=== PATIENT | male | born 1940 | race Caucasian/White ===

== ENCOUNTER 2017-03-29 10:09 | Outpatient (CLI) | payer MEDICARE, OTHER ==
[2017-03-29 13:25] LABS: HEMOGLOBIN A1C 0.52 g/dL
[2017-03-29 13:32] LABS: BASOPHILS # (AUTO) 0.1 10^3/uL (0.0-0.1); EOSINOPHILS # (AUTO) 0.2 10^3/uL (0.0-0.7); EOSINOPHILS % (AUTO) 3.2 %; HCT - HEMATOCRIT 41.6 % (42.0-52.0); HGB - HEMOGLOBIN 14.3 g/dL (14.0-18.0); LYMPHOCYTES # (AUTO) 1.6 10^3/uL (1.5-3.5); LYMPHOCYTES % (AUTO) 30.4 %; MEAN CORPUSCULAR HEMOGLOBIN 32.9 pg (27.0-31.0); MEAN CORPUSCULAR HGB CONC 34.5 g/dL (32.0-36.0); MEAN CORPUSCULAR VOLUME 95.2 fL (80.0-94.0); MONOCYTES # (AUTO) 0.4 10^3/uL (0.0-1.0); MONOCYTES % (AUTO) 8.2 %; NEUTROPHILS % (AUTO) 57.2 %; NUCLEATED RED BLOOD CELLS AUTO 0.1 /100WBC; RED BLOOD COUNT 4.36 10^6/uL (4.70-6.10); RED CELL DISTRIBUTION WIDTH 13.1 % (12.0-15.0); UNCORRECTED WHITE BLOOD COUNT 5.2 x10^3/uL; WHITE BLOOD COUNT 5.2 x10^3/uL (4.8-10.8)
[2017-03-29 13:45] LABS: ALBUMIN/GLOBULIN RATIO 2.1 (1.0-2.2); BILIRUBIN,TOTAL 0.7 mg/dL (0.2-1.0); BUN - BLOOD UREA NITROGEN 23 mg/dL (6-20); CALCIUM 9.7 mg/dL (8.5-10.3); CARBON DIOXIDE - CO2 24 mmol/L (21-32); CHLORIDE 106 mmol/L (101-111); CHOL/HDL RATIO 2.6 (<5.0); CHOLESTEROL 174 mg/dL; CREATININE 1.1 mg/dL (0.6-1.2); GFR - MDRD 65 (>89); GLUCOSE 101 mg/dL (70-100); HDL CHOLESTEROL 68 mg/dL; LDL/HDL RATIO 1.3 (<3.6); POTASSIUM 4.4 mmol/L (3.5-5.0); SODIUM 140 mmol/L (135-145); TOTAL PROTEIN 6.8 g/dL (6.7-8.2); TRIGLYCERIDES 102 mg/dL; VLDL CHOLESTEROL 20 mg/dL
== END 2017-03-29 10:10 | disposition home or self-care (01) ==
LOC: LAB.WCP 10:09
PROVIDERS: ATTEND Family Medicine
DX: E78.5 Hyperlipidemia, unspecified (principal); R73.01 Impaired fasting glucose; Z12.5 Encounter for screening for malignant neoplasm of prostate
CPT/HCPCS: 36415; 80053; 80061; 83036; 85025; G0103; 84153

== ENCOUNTER 2018-04-20 07:34 | Outpatient (CLI) | payer MEDICARE, OTHER ==
[2018-04-20 12:58] LABS: BASOPHILS % (AUTO) 0.8 %; EOSINOPHILS # (AUTO) 0.2 10^3/uL (0.0-0.7); EOSINOPHILS % (AUTO) 3.5 %; HGB - HEMOGLOBIN 13.7 g/dL (14.0-18.0); LYMPHOCYTES # (AUTO) 1.4 10^3/uL (1.5-3.5); LYMPHOCYTES % (AUTO) 29.3 %; MEAN CORPUSCULAR HEMOGLOBIN 33.4 pg (27.0-31.0); MEAN CORPUSCULAR HGB CONC 33.9 g/dL (32.0-36.0); MEAN CORPUSCULAR VOLUME 98.5 fL (80.0-94.0); MEAN PLATELET VOLUME 7.4 fL (7.4-11.4); MONOCYTES # (AUTO) 0.5 10^3/uL (0.0-1.0); MONOCYTES % (AUTO) 9.7 %; NEUTROPHILS # (AUTO) 2.8 10^3/uL (1.5-6.6); NEUTROPHILS % (AUTO) 56.7 %; PLT - PLATELET COUNT 272 10^3/uL (130-450); RED BLOOD COUNT 4.11 10^6/uL (4.70-6.10); WHITE BLOOD COUNT 4.9 x10^3/uL (4.8-10.8)
[2018-04-20 13:00] LABS: BILIRUBIN,URINE NEGATIVE (NEGATIVE); GLUCOSE, URINE (UA) NEGATIVE (NEGATIVE); KETONES,URINE (UA) NEGATIVE (NEGATIVE); LEUKOCYTE ESTERASE, URINE NEGATIVE (NEGATIVE); NITRITE,URINE NEGATIVE (NEGATIVE); OCCULT BLOOD,URINE NEGATIVE (NEGATIVE); PROTEIN,URINE NEGATIVE (NEGATIVE); UROBILINOGEN,URINE 0.2 (NORMAL) E.U./dL (NORMAL)
[2018-04-20 13:04] LABS: CLARITY,URINE CLEAR (CLEAR)
[2018-04-20 13:10] LABS: RBC,URINE None Seen /HPF (0-5); SQUAMOUS EPITHELIAL CELL,UR NONE SEEN (<= Few)
[2018-04-20 13:11] LABS: BACTERIA,URINE None Seen /HPF (None Seen)
[2018-04-20 13:13] LABS: % IRON SATURATION 27 % (20-50); ALBUMIN 4.1 g/dL (3.2-5.5); ALBUMIN/GLOBULIN RATIO 1.6 (1.0-2.2); ALKALINE PHOSPHATASE 58 IU/L (42-121); ALT ALANINE AMINOTRANSFERASE 17 IU/L (10-60); AST ASPARTATE AMINOTRANSFERASE 22 IU/L (10-42); BILIRUBIN,TOTAL 0.6 mg/dL (0.2-1.0); BUN - BLOOD UREA NITROGEN 25 mg/dL (6-20); CALCIUM 9.2 mg/dL (8.5-10.3); CARBON DIOXIDE - CO2 24 mmol/L (21-32); CHLORIDE 107 mmol/L (101-111); CHOL/HDL RATIO 1.7 (<5.0); CHOLESTEROL 154 mg/dL; GFR - MDRD 72 (>89); GLUCOSE 89 mg/dL (70-100); HDL CHOLESTEROL 90 mg/dL; IRON 92 ug/dL (45-182); LDL CHOLESTEROL,CALCULATED 54 mg/dL; LDL/HDL RATIO 0.6 (<3.6); SODIUM 138 mmol/L (135-145); TOTAL IRON BINDING CAPACITY 337 ug/dL (250-450); TOTAL PROTEIN 6.7 g/dL (6.7-8.2); TRANSFERRIN 241 mg/dL (180-329); URIC ACID 6.2 mg/dL (2.6-7.2); VLDL CHOLESTEROL 10 mg/dL
[2018-04-20 13:19] LABS: HB2 TOTAL 15.2 g/dL; HEMOGLOBIN A1C 0.5 g/dL; HEMOGLOBIN A1C % 5.2 % (4.6-6.2)
== END 2018-04-20 07:35 ==
LOC: LAB.WCP 07:34
PROVIDERS: ATTEND Family Medicine
DX: Z00.00 Encounter for general adult medical examination without abnormal findings (principal); E78.5 Hyperlipidemia, unspecified; I10 Essential (primary) hypertension; R73.01 Impaired fasting glucose; D50.9 Iron deficiency anemia, unspecified; M10.9 Gout, unspecified
CPT/HCPCS: 36415; 80053; 80061; 81001; 82728; 83036; 83540; 83721; 84466; 84550; 85025

== ENCOUNTER 2019-05-30 08:56 | Outpatient (CLI) | payer MEDICARE, OTHER ==
[2019-05-30 09:26] LABS: ALBUMIN 4.3 g/dL (3.2-5.5); ALBUMIN/GLOBULIN RATIO 1.5 (1.0-2.2); ALKALINE PHOSPHATASE 65 IU/L (42-121); ALT ALANINE AMINOTRANSFERASE 21 IU/L (10-60); AST ASPARTATE AMINOTRANSFERASE 20 IU/L (10-42); BILIRUBIN,TOTAL 0.8 mg/dL (0.2-1.0); BUN - BLOOD UREA NITROGEN 23 mg/dL (6-20); CALCIUM 9.3 mg/dL (8.5-10.3); CARBON DIOXIDE - CO2 22 mmol/L (21-32); CHLORIDE 107 mmol/L (101-111); CHOL/HDL RATIO 2.1 (<5.0); CHOLESTEROL 168 mg/dL; CREATININE 0.9 mg/dL (0.6-1.2); GFR - MDRD 81 (>89); GLUCOSE 107 mg/dL (70-100); HDL CHOLESTEROL 81 mg/dL; LDL CHOLESTEROL,CALCULATED 71 mg/dL; LDL/HDL RATIO 0.9 (<3.6); SODIUM 142 mmol/L (135-145); TOTAL PROTEIN 7.1 g/dL (6.7-8.2); URIC ACID 4.9 mg/dL (2.6-7.2); VLDL CHOLESTEROL 16 mg/dL
[2019-05-30 09:42] LABS: BASOPHILS # (AUTO) 0.1 10^3/uL (0.0-0.1); BASOPHILS % (AUTO) 1.1 %; EOSINOPHILS # (AUTO) 0.2 10^3/uL (0.0-0.7); EOSINOPHILS % (AUTO) 4.4 %; HGB - HEMOGLOBIN 14.1 g/dL (14.0-18.0); LYMPHOCYTES # (AUTO) 1.7 10^3/uL (1.5-3.5); LYMPHOCYTES % (AUTO) 30.9 %; MEAN CORPUSCULAR HEMOGLOBIN 32.1 pg (27.0-31.0); MEAN CORPUSCULAR HGB CONC 32.6 g/dL (32.0-36.0); MEAN CORPUSCULAR VOLUME 98.6 fL (80.0-94.0); MEAN PLATELET VOLUME 8.8 fL (7.4-11.4); MONOCYTES # (AUTO) 0.5 10^3/uL (0.0-1.0); MONOCYTES % (AUTO) 9.6 %; NEUTROPHILS # (AUTO) 2.9 10^3/uL (1.5-6.6); NEUTROPHILS % (AUTO) 53.8 %; PLT - PLATELET COUNT 254 10^3/uL (130-450); RED BLOOD COUNT 4.39 10^6/uL (4.70-6.10); RED CELL DISTRIBUTION WIDTH 12.6 % (12.0-15.0); WHITE BLOOD COUNT 5.4 x10^3/uL (4.8-10.8)
== END 2019-05-30 08:57 | disposition home or self-care (01) ==
LOC: LAB 08:56
PROVIDERS: ATTEND Family Medicine
DX: N40.1 Benign prostatic hyperplasia with lower urinary tract symptoms (principal); I10 Essential (primary) hypertension; M19.049 Primary osteoarthritis, unspecified hand; M10.9 Gout, unspecified
CPT/HCPCS: 36415; 80053; 80061; 83721; 84443; 84550; 85025

== ENCOUNTER 2020-06-06 08:43 | Outpatient (CLI) | payer MEDICARE, OTHER ==
[2020-06-06 09:02] LABS: BASOPHILS # (AUTO) 0.1 10^3/uL (0.0-0.1); EOSINOPHILS # (AUTO) 0.3 10^3/uL (0.0-0.7); EOSINOPHILS % (AUTO) 4.5 %; HGB - HEMOGLOBIN 14.8 g/dL (14.0-18.0); LYMPHOCYTES % (AUTO) 31.6 %; MEAN CORPUSCULAR HGB CONC 34.6 g/dL (32.0-36.0); MEAN CORPUSCULAR VOLUME 98.4 fL (80.0-94.0); MEAN PLATELET VOLUME 8.3 fL (7.4-11.4); MONOCYTES # (AUTO) 0.5 10^3/uL (0.0-1.0); MONOCYTES % (AUTO) 8.7 %; NEUTROPHILS # (AUTO) 3.4 10^3/uL (1.5-6.6); PLT - PLATELET COUNT 264 10^3/uL (130-450); RED BLOOD COUNT 4.35 10^6/uL (4.70-6.10); RED CELL DISTRIBUTION WIDTH 12.6 % (12.0-15.0); WHITE BLOOD COUNT 6.2 x10^3/uL (4.8-10.8)
[2020-06-06 09:16] LABS: ALBUMIN 4.9 g/dL (3.2-5.5); ALBUMIN/GLOBULIN RATIO 2.2 (1.0-2.2); BILIRUBIN,TOTAL 0.7 mg/dL (0.2-1.0); CALCIUM 9.4 mg/dL (8.5-10.3); TOTAL PROTEIN 7.1 g/dL (6.7-8.2); URIC ACID 5.3 mg/dL (2.6-7.2)
[2020-06-06 11:58] LABS: HEMOGLOBIN A1c% 5.4 % (4.27-6.07)
== END 2020-06-06 08:44 | disposition home or self-care (01) ==
LOC: LAB 08:43
PROVIDERS: ATTEND Family Medicine
DX: E78.5 Hyperlipidemia, unspecified (principal); I10 Essential (primary) hypertension; R73.01 Impaired fasting glucose; M10.9 Gout, unspecified; K21.9 Gastro-esophageal reflux disease without esophagitis
CPT/HCPCS: 36415; 80053; 83036; 84443; 84550; 85025

== ENCOUNTER 2020-08-04 10:56 | Outpatient (CLI) | payer MEDICARE, OTHER ==
--- NOTE | 2020-08-07 12:18 | XRAY Report ---
PROCEDURE: Shoulder 3 View RT INDICATIONS: FROZEN RIGHT SHOULDER TECHNIQUE: 3 views of the shoulder were acquired. COMPARISON: None. FINDINGS: Bones: 3 views of the right shoulder demonstrate complete loss of the joint space with subchondral sc lerosis and subchondral cystic changes. The glenohumeral joint has moderate size osteophytes. The acr omioclavicular joint is intact. The visualized right ribs and right lung space are normal. Soft tissu es are normal. IMPRESSION: Severe degenerative changes of the right glenohumeral joint with complete loss of the aida int space. Reviewed by: Maximiliano Moreno on 08/04/2020 1:37 PM PDT Approved by: Maximiliano Moreno on 08/04/2020 1:37 PM PDT Station ID: [id number]
== END 2020-08-04 10:57 | disposition home or self-care (01) ==
LOC: DI 10:56
PROVIDERS: ATTEND Family Medicine
DX: M75.01 Adhesive capsulitis of right shoulder (principal); M19.011 Primary osteoarthritis, right shoulder

== ENCOUNTER 2021-01-15 14:29 | Outpatient (CLI) | payer MEDICARE, OTHER ==
--- NOTE | 2021-01-15 17:22 | XRAY Report ---
PROCEDURE: Shoulder 3 View RT INDICATIONS: RIGHT SHOULDER PAIN TECHNIQUE: 4 views of the shoulder were acquired. COMPARISON: 08/04/2020. FINDINGS: Bones: No acute fractures or dislocations. Redemonstration of severe degenerative changes of the ri ght glenohumeral joint with complete loss of the joint space and presence of prominent marginal osteo phytes. Marginal osteophytes are most prominent over the inferior aspect of the glenohumeral joint. C oracoclavicular and acromioclavicular intervals are maintained. There are also hypertrophic degenerat merlin changes of the right acromioclavicular joint. No suspicious bony lesions. Visualized ribs appear intact. Soft tissues: No suspicious soft tissue calcifications. Stable 3 mm nodular density in the right mi dlung zone likely representing either a vessel seen on end or tiny pulmonary granuloma. IMPRESSION: Right shoulder without acute fracture or dislocation. Redemonstration of severe right glenohumeral joint osteoarthrosis Mild hypertrophic osteoarthritic changes of the right acromioclavicular joint. Reviewed by: Marek Byrnes MD on 01/15/2021 5:20 PM PDT Approved by: Marek Byrnes MD on 01/15/2021 5:20 PM PDT Station ID: [id number]
== END 2021-01-15 23:59 | disposition home or self-care (01) ==
LOC: DI.N 14:29
PROVIDERS: ATTEND Physician Assistant
DX: M75.01 Adhesive capsulitis of right shoulder (principal); M19.011 Primary osteoarthritis, right shoulder

== ENCOUNTER 2021-02-25 13:15 | Outpatient (CLI) | payer MEDICARE, OTHER ==
[2021-02-25 13:33] LABS: BASOPHILS # (AUTO) 0.1 10^3/uL (0.0-0.1); BASOPHILS % (AUTO) 0.8 %; EOSINOPHILS # (AUTO) 0.2 10^3/uL (0.0-0.7); EOSINOPHILS % (AUTO) 3.5 %; HCT - HEMATOCRIT 40.5 % (42.0-52.0); LYMPHOCYTES % (AUTO) 30.3 %; MEAN CORPUSCULAR HEMOGLOBIN 33.4 pg (27.0-31.0); MEAN CORPUSCULAR HGB CONC 34.6 g/dL (32.0-36.0); MEAN CORPUSCULAR VOLUME 96.7 fL (80.0-94.0); MEAN PLATELET VOLUME 8.5 fL (7.4-11.4); MONOCYTES # (AUTO) 0.5 10^3/uL (0.0-1.0); NEUTROPHILS # (AUTO) 3.8 10^3/uL (1.5-6.6); NEUTROPHILS % (AUTO) 57.2 %; PLT - PLATELET COUNT 261 10^3/uL (130-450); RED BLOOD COUNT 4.19 10^6/uL (4.70-6.10); RED CELL DISTRIBUTION WIDTH 12.6 % (12.0-15.0); WHITE BLOOD COUNT 6.6 x10^3/uL (4.8-10.8)
[2021-02-25 13:49] LABS: ALBUMIN 4.4 g/dL (3.2-5.5); ALBUMIN/GLOBULIN RATIO 1.8 (1.0-2.2); ALKALINE PHOSPHATASE 73 IU/L (42-121); ALT ALANINE AMINOTRANSFERASE 25 IU/L (10-60); AST ASPARTATE AMINOTRANSFERASE 24 IU/L (10-42); BILIRUBIN,TOTAL 0.6 mg/dL (0.2-1.0); BUN - BLOOD UREA NITROGEN 32 mg/dL (6-20); CALCIUM 9.1 mg/dL (8.5-10.3); CARBON DIOXIDE - CO2 21 mmol/L (21-32); CHLORIDE 106 mmol/L (101-111); CHOLESTEROL 179 mg/dL; GFR - MDRD 72 (>89); GLUCOSE 181 mg/dL (70-100); HDL CHOLESTEROL 60 mg/dL; LDL CHOLESTEROL,CALCULATED 53 mg/dL; LDL/HDL RATIO 0.9 (<3.6); SODIUM 138 mmol/L (135-145); TOTAL PROTEIN 6.8 g/dL (6.7-8.2); TRIGLYCERIDES 330 mg/dL; VLDL CHOLESTEROL 66 mg/dL
[2021-02-25 14:01] LABS: THYROID STIMULATING HORMONE 2.45 uIU/mL (0.34-5.60)
[2021-02-25 19:15] LABS: ESTIMATED AVERAGE GLUCOSE 108 mg/dL (70-100); HEMOGLOBIN A1c% 5.4 % (4.27-6.07)
== END 2021-02-25 13:16 | disposition home or self-care (01) ==
LOC: LAB 13:15
PROVIDERS: ATTEND Family Medicine
DX: M19.011 Primary osteoarthritis, right shoulder (principal); M19.90 Unspecified osteoarthritis, unspecified site; E78.5 Hyperlipidemia, unspecified; M75.41 Impingement syndrome of right shoulder; I10 Essential (primary) hypertension; R73.01 Impaired fasting glucose; M10.9 Gout, unspecified
CPT/HCPCS: 36415; 80053; 80061; 83036; 83721; 84443; 85025

== ENCOUNTER 2021-03-03 13:18 | Outpatient (CLI) | payer MEDICARE, OTHER ==
--- NOTE | 2021-03-03 17:45 | MRI Report ---
PROCEDURE: Shoulder RT W/O INDICATIONS: R SHOULDER OSTEOARTHRITIS TECHNIQUE: Noncontrast oblique coronal T2 fast spin echo with fat saturation, oblique sagittal T1 spin echo and T2 fast spin echo with fat saturation, axial T1 spin echo and T2 fast spin echo with fat saturation t hrough the shoulder. COMPARISON: Shoulder radiographs dated 01/15/2021 and 08/04/2020. FINDINGS: Image quality: Diagnostic. Rotator cuff: Tendinosis and low-grade articular and bursal surface partial-thickness tear involving distal supraspinatus at its insertion on humeral head is seen extending to musculotendinous junction. Distal infraspinatus and subscapularis tendinosis is seen. Low-grade partial-thickness tear involvin g superior fibers of distal subscapularis is noted. No full-thickness rotator cuff tendon rupture. Mi ld supraspinatus muscle atrophy is seen on sagittal images. Bones and bursae: Moderate to severe osteoarthritic changes in glenohumeral joint are seen. Mild to m oderate acromioclavicular joint osteoarthritic changes also noted. No fracture or dislocation. Marrow edema is seen in blennoid likely due to changes secondary to osteoarthritis. There is moderate amoun t of joint effusion and subacromial subdeltoid bursal fluid. Moderate subcoracoid bursal fluid is als o seen. Possible 1.2 x 0.9 cm loose body is noted within dependent portion of subcoracoid bursa. Capsule and soft tissues: In the absence of intra-articular contrast, Global signal abnormality thro ughout labrum is seen consistent with extensive labral tear. The glenohumeral ligaments appear intact . The long head of the biceps tendon demonstrates normal location and morphology. The rotator inter kris appears normal, without fibrosis. The coracohumeral ligament is normal in thickness. IMPRESSION: 1. Tendinosis and low-grade articular and bursal surface partial-thickness tear involving distal supr aspinatus extending to musculotendinous junction. Distal infraspinatus tendinosis. Tendinosis and low -grade partial-thickness tear involving superior fibers of distal subscapularis. 2. Moderate to severe glenohumeral joint osteoarthritis. Mild to moderate acromioclavicular joint ost eoarthritis. Moderate amount of joint effusion and subacromial subdeltoid bursal fluid. Moderate subc oracoid bursal fluid with suggestion of loose body as above. 3. Suggestion of extensive right shoulder labral tear. Reviewed by: Jad Abraham MD on 03/03/2021 5:43 PM PDT Approved by: Jad Abraham MD on 03/03/2021 5:43 PM PDT Station ID: [id number]
== END 2021-03-03 13:19 | disposition home or self-care (01) ==
LOC: DI 13:18
PROVIDERS: ATTEND Orthopaedic Surgery
DX: M75.111 Incomplete rotator cuff tear or rupture of right shoulder, not specified as traumatic (principal); M19.011 Primary osteoarthritis, right shoulder; I10 Essential (primary) hypertension
CPT/HCPCS: 36415; 80053; 83735

== ENCOUNTER 2021-03-03 14:15 | Outpatient (CLI) | payer MEDICARE, OTHER ==
[2021-03-03 14:46] LABS: ALBUMIN 4.7 g/dL (3.2-5.5); BILIRUBIN,TOTAL 0.7 mg/dL (0.2-1.0); CALCIUM 9.8 mg/dL (8.5-10.3); CREATININE 1.1 mg/dL (0.6-1.2); MAGNESIUM 2.4 mg/dL (1.7-2.8); POTASSIUM 3.7 mmol/L (3.5-5.0); TOTAL PROTEIN 7.1 g/dL (6.7-8.2)
== END 2021-03-03 14:16 | disposition home or self-care (01) ==
LOC: LAB 14:15
PROVIDERS: ATTEND Family Medicine
DX: I10 Essential (primary) hypertension (principal)
CPT/HCPCS: 36415; 80053; 83735

== ENCOUNTER 2021-03-19 08:00 | Outpatient (CLI) | payer MEDICARE, OTHER | END 2021-03-19 23:59 | disposition home or self-care (01) | LOC: LAB.N 08:00 | PROVIDERS: ATTEND Orthopaedic Surgery | DX: Z01.812 Encounter for preprocedural laboratory examination (principal); Z20.822 Contact with and (suspected) exposure to COVID-19 ==

== ENCOUNTER 2021-03-25 06:16 | Inpatient (IN) | payer MEDICARE, OTHER ==
[~2021-03-25 06:16] MED LIST: ACETAMINOPHEN 500 MG TABLET PO ONE; DEXAMETHASONE 10 MG/ML VIAL ONE; ceFAZolin 2 GM/50 ML 2 GM/50 ML BAG IV ONE
[2021-03-25] MEDS ORDERED: LACTATED RINGERS 1,000 ML IV ONE ×2 (06:22→11:49)
--- NOTE | 2021-03-25 06:49 | ANESTHESIA ---
Pre-Anesthesia VS, & Labs - Diagnosis right shoulder osteoarthritis - Procedure Right total shoulder arthroplasty Vital Signs: Temp Pulse Resp BP Pulse Ox 36.5 C 62 15 149/75 H 95 03/25/21 06:40 03/25/21 06:40 03/25/21 06:40 03/25/21 06:40 03/25/21 06:40 Height: 5 ft 11 in Weight (kg): 85.7 kg Body Mass Index: 26.3 BMI Classification: Overweight - NPO >8 hours - Lab Results Current Lab Results: Laboratory Tests 03/25/21 06:43: POC Whole Bld Glucose 104 H Lab results reviewed: Yes Home Medications and Allergies Home Medications: Ambulatory Orders Amlodipine Besylate [Norvasc] 10 mg PO BID 03/18/21 Diclofenac Sodium [Arthritis Pain] 2 gm TP BID 03/18/21 Losartan Potassium [Cozaar] 100 mg PO DAILY 03/18/21 Oxybutynin Chloride [Ditropan Xl] 5 mg PO BID PRN 03/18/21 Probenecid [Benemid] 250 mg PO BID 03/18/21 Simvastatin [Zocor] 20 mg PO DAILY 03/18/21 Amlodipine Besylate [Norvasc] 10 mg PO BID 03/18/21 Diclofenac Sodium [Arthritis Pain] 2 gm TP BID 03/18/21 Losartan Potassium [Cozaar] 100 mg PO DAILY 03/18/21 Oxybutynin Chloride [Ditropan Xl] 5 mg PO BID PRN 03/18/21 Probenecid [Benemid] 250 mg PO BID 03/18/21 Simvastatin [Zocor] 20 mg PO DAILY 03/18/21 Allergies/Adverse Reactions: Allergies Allergy/AdvReac Type Severity Reaction Status Date / Time allopurinol Allergy Hives Verified 03/18/21 10:26 febuxostat [From Uloric] Allergy Hives Verified 03/18/21 10:26 lisinopril AdvReac cough Verified 03/18/21 10:26 Anes History & Medical History - Anesthetic History Anesthesia Complications: reports: No previous complications Family history of Anesthesia Complications: Denies Family history of Malignant Hyperthermia: Denies - Medical History Cardiovascular: reports: Hypertension, High cholesterol Pulmonary: reports: None Gastrointestinal: reports: None Urinary: reports: Benign prostate hypertrophy Musculoskeletal: reports: Osteoarthritis, Chronic back pain, Other Endocrine/Autoimmune: reports: None Skin: reports: None - Surgical History General: reports: Appendectomy, Colonoscopy Eyes Ears Nose Throat (EENT): reports: Tonsil/Adenoidectomy Urologic: reports: Prostatic surgery Orthopedic: reports: Knee replacement Exam General: Alert, Oriented x3, Cooperative, No acute distress Dental: WNL Mouth Openin Fingerbreadth Neck Mobility: Reduced Mallampati classification: II Respiratory: Lungs clear, Normal breath sounds, No respiratory distress, No accessory muscle use Cardiovascular: Regular rate, Normal S1, Normal S2, No murmurs Plan Anesthesia Type: General, Interscalene Block Regional Block: Per Surgeon's request for Post Op pain control Consent for Procedure(s) Verified and Reviewed: Yes Code Status: Attempt Resuscitation ASA classification: 2-Mild systemic disease Is this case an emergency?: No
[2021-03-25] MEDS ORDERED: fentaNYL 100 MCG/2 ML VIAL ONE (06:52)
[2021-03-25] MEDS ORDERED: MIDAZOLAM 2 MG/2 ML VIAL ONE (06:52)
[2021-03-25] MEDS ORDERED: LIDOCAINE-MPF 2% 5 ML VIAL ONE ×2 (06:53→06:55)
[2021-03-25] MEDS ORDERED: PROPOFOL 200 MG/20 ML VIAL IVP ONE (06:53)
[2021-03-25] MEDS ORDERED: ROCURONIUM 50 MG/5 ML VIAL ONE ×3 (06:54→09:07)
[2021-03-25] MEDS ORDERED: ROPIVACAINE 0.5% PF 20 ML AMPULE ONE (06:55)
[2021-03-25] MEDS ORDERED: EPINEPHrine 1 MG/ML AMP ONE (06:56)
[2021-03-25] MEDS ORDERED: DEXAMETHASONE 10 MG/ML VIAL ONE (06:56)
[2021-03-25] MEDS ORDERED: THROMBIN (BOVINE) 5,000 UNIT VIAL TOP ONE ×2 (07:02→08:23)
[2021-03-25] MEDS ORDERED: ONDANSETRON 4 MG/2 ML VIAL IVP PRN ×2 (07:17→11:13)
[2021-03-25] MEDS ORDERED: MORPHINE 2 MG/ML CARPUJECT IVP PRN ×2 (07:17→11:13)
[2021-03-25] MEDS ORDERED: SODIUM CHLORIDE FLUSH 0.9% 10 ML SYRINGE IVP PRN (07:17)
[2021-03-25] MEDS ORDERED: DOCUSATE SODIUM 100 MG CAPSULE PO PRN (07:17)
[2021-03-25] MEDS ORDERED: TRANEXAMIC ACID 1,000 MG/10 ML VIAL ONE ×2 (07:50→09:35)
[2021-03-25] MEDS ORDERED: SODIUM CHLORIDE 0.9% 10 ML VIAL IVP ONE (07:54)
[2021-03-25] MEDS ORDERED: ePHEDrine 50 MG/ML VIAL IVP ONE (07:54)
[2021-03-25] MEDS ORDERED: ACETAMINOPHEN 1,000 MG/100 ML 100 ML IV ONE (07:56)
[2021-03-25] MEDS ORDERED: NS W/20 MEQ KCL 1,000 ML IV SCH (08:00)
[2021-03-25] MEDS ORDERED: CELECOXIB 100 MG CAPSULE PO SCH ×2 (09:00→13:30)
[2021-03-25] MEDS ORDERED: ASPIRIN EC 81 MG TABLET PO SCH (09:00)
[2021-03-25] MEDS ORDERED: ethyl alcohoL 62% SWAB AMPULE NAS SCH (09:00)
[2021-03-25] MEDS ORDERED: NEOSTIGMINE 1 MG/1 ML 10 ML MDV ONE ×2 (10:30→10:31)
[2021-03-25] MEDS ORDERED: GLYCOPYRROLATE 1 MG/5 ML VIAL ONE (10:30)
[2021-03-25] MEDS ORDERED: ePHEDrine 50 MG/ML VIAL IVP PRN (11:13)
[2021-03-25] MEDS ORDERED: METOCLOPRAMIDE 10 MG/2 ML VIAL IVP PRN (11:13)
[2021-03-25] MEDS ORDERED: fentaNYL 100 MCG/2 ML VIAL IVP PRN (11:13)
[2021-03-25] MEDS ORDERED: HYDROmorphone 0.5 MG/0.5 ML SYRINGE IVP PRN (11:13)
[2021-03-25] MEDS ORDERED: ATROPINE ABBOJECT 1 MG/10 ML SYRINGE IVP PRN (11:13)
[2021-03-25] MEDS ORDERED: NALOXONE 0.4 MG/ML VIAL IVP PRN (11:13)
--- NOTE | 2021-03-25 11:26 | OPERATIVE REPORT ---
Operative Report - General Admit Date: 03/25/21 Procedure Date: 03/25/21 Planned Procedure: Right total shoulder arthroplasty Pre-Op Diagnosis: Osteoarthritis right glenohumeral joint Procedure Performed: Right total shoulder arthroplasty using the [employer] Integra total shoulder arthroplasty. Medium glenoid, 13 stem, 12 standard body, 48 x 18 mm eccentric humeral head Post Op Diagnosis: Osteoarthritis right glenohumeral joint - Procedure Note Primary Surgeon: Venkat Gil MD Secondary Surgeon: Peyman BALL, Frank BALL Anesthesia Provider: Alan Tellez CRNA Anesthesia Technique: General ET tube, Regional block Estimated Blood Loss (mL): 100 Indications: This is a relatively healthy and active 80-year-old gentleman with chronic pain to the right glenohumeral joint that restricts activities of daily living and activities that he would like to do. He is tried nonoperative treatment and has had progression of symptoms with time. His x-rays show advanced glenohumeral osteoarthritis with relatively concentric wear, type A2 glenoid with intact rotator cuff confirmed clinically and by MRI scan of the right shoulder. He has had a preoperative medical evaluation without any absolute contraindications for surgery. Findings: Eburnated bone surfaces to glenoid and humeral head, osteophytes, with intact rotator cuff Complications: none - Other Other Information/Narrative: The patient was brought to the operating room. He was given a general endotracheal anesthesia and a shoulder block to the right shoulder. He was placed in a beachchair positioner in a semisitting position and his right arm was secured to a arm albert. The right upper extremity was prepped and draped in a sterile manner in the usual fashion. The head positioner was placed in a neutral position with care to protect the face with a padded facemask. A timeout procedure was performed by the entire operating room team and all were in agreement. A An anterolateral incision was was made longitudinally about the right shoulder just lateral to the coracoid and parallel to the deltopectoral interval. The subcutaneous tissue was divided and the deltopectoral interval was developed by blunt retraction with mobilization of the subdeltoid and subcoracoid spaces. With the arm in external rotation the rotator interval was identified and a horizontal arthrotomy was made and then extended vertically. The arm could be externally rotated to about 30 degrees and for this reason a subscapularis tenotomy was made. Prior to the tenotomy traction sutures were inserted into the subscapularis for subsequent repair. The tenotomy was performed and taking distally along the inferior capsule. The biceps tendon had been identified as well. Part of the pectoralis major insertion was released, approximately 1 cm. With progressive external rotation, the anterior and inferior capsule was released. The musculocutaneous nerve was protected when retracting the conjoined muscles. The humeral circumflex vessels were ligated with electrocautery. The posterior capsule was maintained. A deltoid retractor was inserted to elevate the humeral head as the humeral head was dislocated with external rotation. A blunt Hohmann was inserted medially and a Derra retractor was inserted superiorly to expose the humeral head the head resection was performed with the intramedullary cutting guide. The cutting guide was adjusted to a depth to protect the posterior cuff attachment. The guide was temporarily secured with half pins and oscillating saw was used to remove the humeral head en bloc. Next the humeral head was sized that had been resected. The glenoid was exposed by positioning the arm albert and abduction and mild external rotation. A posterior glenoid retractor was inserted directly against bone and a blunt Hohmann was inserted anteriorly to provide good exposure of the glenoid. A medium trial glenoid seem to fit well with a nice concentric fit. The guidepin was inserted in the center and then glenoid reaming was carried out with a low-profile glenoid reamer to try to create a nice reamed surface without excessive bone removal. A trial fit was performed with the trial glenoid and it seemed to have a nice fit to the glenoid face. A central drill hole was made in the pegged glenoid drill guide was utilized to place 2 holes inferiorly and one superiorly. The patent glenoid trial retractor was impacted and was stable and fit well's. The depth of the holes were checked with the probe and there was no cortical breakthrough on any of the holes. The glenoid surface was cleansed with pulse lavage. Gelfoam and thrombin was placed in the drill holes. Cement was injected into the holes and the permanent glenoid was then impacted and well seated using a secondary impactor. Next the humeral head canal was prepared with progressive reamers up to a 13 and a standard size was indicated as the standard marked aligned with the calcar and had a good fit. The humeral canal had been cut and aligned at 30 degrees of retroversion. the osteotomy was evaluated and a calcar planer was used. The osteotomy sizing template was utilized and an eccentric fit seem to be the best. Soft tissue balancing was performed using a trial humeral head and was felt that the 48 x 18 eccentric head gave good motion and stability. The humeral head could be subluxed posteriorly almost 50% and would spontaneously reduce when the posterior force was released. The permanent implant was assembled and impacted in 30 degrees of retroversion. The stem was left slightly proud to allow impaction of the humeral head which was aligned from previous trial positioning. The humeral component seated well and was stable. The range of motion and stability was very good. Prior to the insertion of the humeral component, 2 fiber elliot all suture anchors had been inserted into the humeral neck to facilitate subscapularis repair. The subscapularis and rotator interval were closed with nonabsorbable #1 and 2 suture. The deltopectoral interval was closed with 0 Vicryl. The subcutaneous tissue was closed with 2-0 Vicryl. The skin was closed with a 3-0 Monocryl subcuticular suture and Dermabond closure, silver impregnated dressing and sling. He received 2 g of Ancef intravenously and tranxemic acid. He tolerated the procedure well.A physician civil engineering assistant was utilized to provide exposure, retraction and protection of vital structures, positioning and draping, wound closure and brace application; a physician as sistant was felt to be a medical necessity.
[2021-03-25] MEDS ORDERED: LACTATED RINGERS 1,000 ML IV SCH (12:00)
--- NOTE | 2021-03-25 12:15 | XRAY Report ---
PROCEDURE: Shoulder 2 View RT INDICATIONS: postop TECHNIQUE: 2 views of the shoulder were acquired. COMPARISON: Right shoulder radiographs preop 01/15/2021. FINDINGS: Bones: Right humerus arthroplasty is in the expected position. No periprosthetic lucency to suggest loosening or infection. No fractures or dislocations. No suspicious bony lesions. Visualized ribs a ppear intact. Soft tissues: No suspicious soft tissue calcifications. IMPRESSION: Expected appearance of the right humerus arthroplasty. Reviewed by: Raleigh Lazar MD on 03/25/2021 12:13 PM PDT Approved by: Raleigh Lazar MD on 03/25/2021 12:13 PM PDT Station ID: [id number]
--- NOTE | 2021-03-25 12:38 | ANESTHESIA POST OP EVALUATION ---
Anesthesia Post Eval - Post Anesthesia Eval Vitals: Last Vital Signs Temp 37.0 C 03/25/21 12:36 Pulse 64 03/25/21 12:36 Resp 15 03/25/21 12:36 BP 111/55 L 03/25/21 12:36 Pulse Ox 95 03/25/21 12:36 CV Function Including HR & BP: Stable Pain Control: Satisfactory Nausea & Vomiting: Negative Mental Status: Baseline Respiratory Status: Airway Patent Hydration Status: Satisfactory Anesthesia Complications: None
--- NOTE | 2021-03-25 13:44 | CONSULTATION NOTE ---
Referring Provider Name of Referring Provider:: Dr. Gil Consult Date: 03/25/21 Chief Complaint - Chief Complaint Chief Complaint: s/p of Right total shoulder arthroplasty History of Present Illness - Admitted From Admitted From:: medical floor - History Obtained From Records Reviewed: [facility] History obtained from: pt and Dr. Gil Exam Limitations: no - History of Present Illness HPI Comment/Other: This is a 80-years old male With a past medical history significant noted for hypertension, hyperlipidemia, BPH, osteoarthritis, Who had a Right total shoulder arthroplasty done by our orthopedic surgeon. Medical team was Consulted for medical management. We saw patient in the medical floor s/p of Right total shoulder arthroplasty. Patient is comfortable laying in the bed. He has no complaints. His pain is good control. he denies chest pain, shortness of breath. He state " I will walk out of hospital if I could not be d/c on tomorrow." History - Past Medical History Cardiovascular: reports: Hypertension, High cholesterol Respiratory: reports: None Endocrine/Autoimmune: reports: None GI: reports: None : reports: Benign prostate hypertrophy HEENT: reports: Chronic vision loss, Chronic hearing loss Psych: reports: None Musculoskeletal: reports: Osteoarthritis, Chronic back pain, Other Derm: reports: None MRSA Hx?: No - Past Surgical History General: reports: Appendectomy, Colonoscopy Ortho: reports: Knee replacement HEENT: reports: Tonsil/Adenoidectomy Meds/Allgy - Home Medications Home Medications: Ambulatory Orders Medication Instructions Recorded Confirmed Amlodipine Besylate [Norvasc] 10 mg PO BID 03/18/21 03/25/21 Diclofenac Sodium [Arthritis Pain] 2 gm TP BID 03/18/21 03/25/21 Losartan Potassium [Cozaar] 100 mg PO DAILY 03/18/21 03/25/21 Oxybutynin Chloride [Ditropan Xl] 5 mg PO BID PRN 03/18/21 03/25/21 Probenecid [Benemid] 250 mg PO BID 03/18/21 03/25/21 Simvastatin [Zocor] 20 mg PO DAILY 03/18/21 03/25/21 - Allergies Allergies/Adverse Reactions: Allergies Allergy/AdvReac Type Severity Reaction Status Date / Time allopurinol Allergy Hives Verified 03/18/21 10:26 febuxostat [From Uloric] Allergy Hives Verified 03/18/21 10:26 lisinopril AdvReac cough Verified 03/18/21 10:26 Review of Systems - Constitutional Constitutional: denies: Fever, Chills, Malaise, Weakness, Poor appetite, Diaphoresis - Eyes Eyes: denies: Pain, Blurred vision, Field loss, Vision loss - Ears, Nose & Throat Ears, Nose & Throat: denies: Ear pain, Tinnitus, Nosebleeds, Bleeding gums - Cardiovascular Cariovascular: denies: Irregular heart rate, Palpitations, Chest pain, Edema, Lightheadedness, Syncope, Exertional dyspnea, Decr. exercise tolerance - Respiratory Respiratory: denies: Cough, Sputum production, Wheezing, Snoring, Hemoptysis, Orthopnea, SOB at rest, SOB with exertion - Gastrointestinal Gastrointestinal: denies: Abdominal pain, Constipation, Diarrhea, Rectal bleeding, Black stools, Bloody stools, Nausea, Vomiting - Genitourinary Genitourinary: denies: Dysuria, Urgency, Incontinence - Musculoskeletal Musculoskeletal: reports: Limited range of motion. denies: Muscle pain, Muscle aches - Integumentary Integumentary: denies: Rash, Lesions - Neurological Neurological: denies: General weakness, Focal weakness, Headache, Dizziness, Numbness, Memory problems, Pre-existing deficit, Abnormal gait, Seizures, Incoordination, Slurred speech - Psychiatric Psychiatric: denies: Depression, Anxiety, Delusions - Endocrine Endocrine: denies: Polyuria, Polyphagia - Hematologic/Lymphatic Hematologic/Lymphatic: denies: Anemia, Blood clots Exam - Vital Signs Vital Signs: Vital Signs x48h Temp Pulse Pulse Resp BP BP Pulse Ox 03/25/21 13:22 67 18 116/50 L 94 03/25/21 12:36 37.0 C 64 15 111/55 L 95 03/25/21 12:25 36.9 C 62 14 104/56 L 95 03/25/21 12:20 37.0 C 65 19 107/53 L 96 03/25/21 12:15 37.0 C 67 17 111/54 L 97 03/25/21 12:10 65 16 111/53 L 98 03/25/21 12:05 65 14 104/55 L 97 03/25/21 12:00 66 14 103/58 L 97 03/25/21 11:55 37.0 C 69 15 109/53 L 96 03/25/21 11:50 69 10 L 109/53 L 97 03/25/21 11:47 36.9 C 69 12 100/57 L 96 03/25/21 06:40 36.5 C 62 15 149/75 H 95 - Physical Exam General Appearance: positive: No acute distress, Alert. negative: Lethargic Eyes Bilateral: positive: Normal inspection, PERRL, No lid inflammation ENT: positive: ENT inspection nml, No signs of dehydration. negative: Purulent nasal drainage Neck: positive: Nml inspection, Trachea midline. negative: Thyromegaly, Tracheal deviation Respiratory: positive: Chest non-tender, No respiratory distress, Breath sounds nml. negative: Wheezes, Rales Cardiovascular: positive: Regular rate & rhythm, No murmur. negative: Tachycardia, Bradycardia, Systolic murmur, Diastolic murmur Peripheral Pulses: positive: 2+ Abdomen: positive: Non-tender, Nml bowel sounds, No distention. negative: Tenderness, Guarding Back: positive: Nml inspection Skin: positive: Color nml, Warm, Dry. negative: Cyanosis Extremities: positive: Nml appearance, Other (intact neurovascular status on distal of right upper extremity). negative: Calf tenderness Neurologic/Psychiatric: positive: Oriented x3, Sensation nml, Mood/affect nml. negative: Weakness, Sensory loss, Facial droop, Slurred/abnml speech, Depressed mood/affect Conclusion/Plan - Plan Plan: 1, s/p Right total shoulder arthroplasty followup with orthopedics surgeon, continue PT/OT, pain control, aspirin for DVT Prophylaxis. 2, HTN stable, will resume home meds 3, HLD resume home 4, BPH resume home Flomax 5. osteoarthritis stable, continue pain control. 6. anemia pt's HGB is 10.9 today from 14 about one month ago. pt had Right total shoulder arthroplasty repair. we will have anemia study, fecal occult test, continue lab monitor HGB. 7, dehydration pt had creatinine 1.3 and BUN 27, slight increased from previous creatinine 1.1. continue IVF, continue lab monitor, caution of fluid overloaded as well, vital sign closely monitor pt. - Lab Results Lab results reviewed: Yes Fish Bones: 03/25/21 13:48 03/25/21 14:09
[2021-03-25 13:55] LABS: BASOPHILS % (AUTO) 0.1 %; EOSINOPHILS % (AUTO) 0.1 %; HCT - HEMATOCRIT 32.2 % (42.0-52.0); HGB - HEMOGLOBIN 10.9 g/dL (14.0-18.0); LYMPHOCYTES # (AUTO) 0.5 10^3/uL (1.5-3.5); LYMPHOCYTES % (AUTO) 5.3 %; MEAN CORPUSCULAR HEMOGLOBIN 33.5 pg (27.0-31.0); MEAN CORPUSCULAR HGB CONC 33.9 g/dL (32.0-36.0); MEAN CORPUSCULAR VOLUME 99.1 fL (80.0-94.0); MEAN PLATELET VOLUME 8.5 fL (7.4-11.4); MONOCYTES # (AUTO) 0.2 10^3/uL (0.0-1.0); MONOCYTES % (AUTO) 2.1 %; NEUTROPHILS # (AUTO) 8.4 10^3/uL (1.5-6.6); NEUTROPHILS % (AUTO) 91.9 %; PLT - PLATELET COUNT 218 10^3/uL (130-450); RED BLOOD COUNT 3.25 10^6/uL (4.70-6.10); RED CELL DISTRIBUTION WIDTH 12.4 % (12.0-15.0); WHITE BLOOD COUNT 9.2 x10^3/uL (4.8-10.8)
[2021-03-25] MEDS: ASPIRIN EC 81 MG TABLET PO SCH ×2 (13:59→21:15)
[2021-03-25] MEDS: ACETAMINOPHEN 500 MG TABLET PO SCH ×2 (13:59→17:18)
[2021-03-25] MEDS: SODIUM CHLORIDE FLUSH 0.9% 10 ML SYRINGE IVP SCH ×2 (13:59→16:03)
[2021-03-25] MEDS: ethyl alcohoL 62% SWAB AMPULE NAS SCH ×2 (13:59→21:15)
[2021-03-25] MEDS: ceFAZolin 2 GM/50 ML 2 GM/50 ML BAG IV SCH ×2 (14:09→21:16)
[2021-03-25 14:22] LABS: CALCIUM 9.1 mg/dL (8.5-10.3); CREATININE 1.3 mg/dL (0.6-1.2); POTASSIUM 4.4 mmol/L (3.5-5.0)
--- NOTE | 2021-03-25 14:30 | XRAY Report ---
PROCEDURE: Chest 1 View X-Ray INDICATIONS: sob TECHNIQUE: One view of the chest was acquired. COMPARISON: None FINDINGS: Surgical changes and devices: None. Lungs and pleura: [facility] angles bilaterally. Mediastinum: Mediastinal contours appear normal. Heart size is normal. Bones and chest wall: No suspicious bony lesions. Overlying soft tissues appear unremarkable. IMPRESSION: Minimal costophrenic angle blunting, left greater than right suggestive of trace effusions versus sca rring. Reviewed by: Marija Hinton MD on 03/25/2021 2:29 PM PDT Approved by: Marija Hinton MD on 03/25/2021 2:29 PM PDT Station ID: [id number]
[2021-03-25 14:38] LABS: ABSOLUTE RETICS # AUTO 0.052 10^6/uL (0.020-0.110); RED BLOOD COUNT 3.28 10^6/uL (4.70-6.10); RETICULOCYTE COUNT % (AUTO) 1.57 % (0.5-2.3)
[2021-03-25 15:00] LABS: FERRITIN 226.6 ng/mL (23.9-336.2)
[2021-03-25] MEDS ORDERED: SODIUM CHLORIDE 0.9% 1,000 ML IV SCH (15:00)
[2021-03-25 15:04] LABS: % IRON SATURATION 12 % (20-50); IRON 41 ug/dL (45-182); TOTAL IRON BINDING CAPACITY 336 ug/dL (250-450); TRANSFERRIN 240 mg/dL (180-329)
[2021-03-25] MEDS: FERROUS SULFATE 325 MG TABLET PO SCH (16:03)
[2021-03-25] MEDS ORDERED: ATORVASTATIN 10 MG TABLET PO SCH (21:00)
[2021-03-25 21:03] LABS: HGB - HEMOGLOBIN 12.5 g/dL (14.0-18.0)
[2021-03-25] MEDS: PROBENECID 500 MG TABLET PO SCH (21:14)
[2021-03-25] MEDS: OXYBUTYNIN 5MG TABLET PO PRN (22:22)
[2021-03-25] MEDS: oxyCODONE 5 MG TABLET PO PRN (22:25)
[2021-03-26] MEDS: ACETAMINOPHEN 500 MG TABLET PO SCH ×2 (00:09→06:10)
[2021-03-26] MEDS: SODIUM CHLORIDE FLUSH 0.9% 10 ML SYRINGE IVP SCH ×2 (00:10→09:06)
[2021-03-26] MEDS: oxyCODONE 5 MG TABLET PO PRN ×2 (04:03→10:16)
[2021-03-26 05:07] LABS: BASOPHILS % (AUTO) 0.2 %; EOSINOPHILS % (AUTO) 0.1 %; LYMPHOCYTES # (AUTO) 1.3 10^3/uL (1.5-3.5); LYMPHOCYTES % (AUTO) 12.8 %; MEAN CORPUSCULAR HEMOGLOBIN 33.7 pg (27.0-31.0); MEAN CORPUSCULAR HGB CONC 34.3 g/dL (32.0-36.0); MEAN CORPUSCULAR VOLUME 98.3 fL (80.0-94.0); MEAN PLATELET VOLUME 8.6 fL (7.4-11.4); MONOCYTES % (AUTO) 10.1 %; NEUTROPHILS # (AUTO) 7.6 10^3/uL (1.5-6.6); NEUTROPHILS % (AUTO) 76.4 %; PLT - PLATELET COUNT 251 10^3/uL (130-450); RED BLOOD COUNT 3.56 10^6/uL (4.70-6.10); RED CELL DISTRIBUTION WIDTH 12.4 % (12.0-15.0)
[2021-03-26 05:17] LABS: CALCIUM 8.7 mg/dL (8.5-10.3); POTASSIUM 4.1 mmol/L (3.5-5.0)
--- NOTE | 2021-03-26 07:50 | PROVIDER PROGRESS NOTE ---
Subjective - General Admit Date: 03/25/21 Procedure Date: 03/25/21 Post Op Days: 1 - Review of Systems Wound/Incisions: positive: Dressing dry and intact General: positive: No symptoms Pulmonary: positive: No symptoms Cardiovascular: positive: No symptoms Gastrointestinal: positive: No symptoms Musculoskeletal: positive: Shoulder pain, Back pain - Other Other Information/Narrative: Patient is a 80-year-old male postop day 1 right total shoulder arthroplasty. Patient has medical history including essential hypertension, gout, Iron deficiency anemia.Patient seen postop day 1 where he has complaints of shoulder and back pain.Denies any other symptoms.Patient is being comanaged by hospitalist and has a planned postop day 1 discharge. Objective - Patient Data Vital Signs: Vital Signs x48h Temp Pulse Resp BP Pulse Ox 03/26/21 05:04 36.6 C 55 L 16 122/57 L 95 Weight: Weight 03/24/21 03/25/21 03/26/21 23:59 23:59 23:59 Weight (kg) 85.7 kg Intake & Output: Intake and Output Totals x24h 03/24/21 03/25/21 03/26/21 23:59 23:59 23:59 Intake Total 973 Output Total 300 Balance 673 - Lab Results Lab Results: 03/26/21 04:55 03/26/21 04:55 Other Lab Results: Lab Results x24hrs 03/26/21 03/26/21 03/25/21 Range/Units 04:55 04:55 20:58 WBC 10.0 (4.8-10.8) x10^3/uL RBC 3.56 L (4.70-6.10) 10^6/uL Hgb 12.0 L 12.5 L (14.0-18.0) g/dL Hct 35.0 L 37.0 L (42.0-52.0) % MCV 98.3 H (80.0-94.0) fL MCH 33.7 H (27.0-31.0) pg MCHC 34.3 (32.0-36.0) g/dL RDW 12.4 (12.0-15.0) % Plt Count 251 (130-450) 10^3/uL MPV 8.6 (7.4-11.4) fL Reticulocyte % (Auto) (0.5-2.3) % Neut # (Auto) 7.6 H (1.5-6.6) 10^3/uL Lymph # (Auto) 1.3 L (1.5-3.5) 10^3/uL Corson # (Auto) 1.0 (0.0-1.0) 10^3/uL Eos # (Auto) 0.0 (0.0-0.7) 10^3/uL Baso # (Auto) 0.0 (0.0-0.1) 10^3/uL Absolute Nucleated RBC 0.00 x10^3/uL Nucleated RBC % 0.0 /100WBC Absolute Retic (0.020-0.110) 10^6/uL Sodium 137 (135-145) mmol/L Potassium 4.1 (3.5-5.0) mmol/L Chloride 107 (101-111) mmol/L Carbon Dioxide 22 (21-32) mmol/L Anion Gap 8.0 (6-13) BUN 21 H (6-20) mg/dL Creatinine 1.0 (0.6-1.2) mg/dL Estimated GFR (MDRD) 72 L (>89) Glucose 125 H (70-100) mg/dL Calcium 8.7 (8.5-10.3) mg/dL Iron (45-182) ug/dL TIBC (250-450) ug/dL % Saturation (20-50) % Transferrin (180-329) mg/dL Ferritin (23.9-336.2) ng/mL Lactate Dehydrogenase (91-225) IU/L Vitamin B12 (180-914) pg/mL 03/25/21 03/25/21 03/25/21 Range/Units 14:09 14:07 14:07 WBC (4.8-10.8) x10^3/uL RBC (4.70-6.10) 10^6/uL Hgb (14.0-18.0) g/dL Hct (42.0-52.0) % MCV (80.0-94.0) fL MCH (27.0-31.0) pg MCHC (32.0-36.0) g/dL RDW (12.0-15.0) % Plt Count (130-450) 10^3/uL MPV (7.4-11.4) fL Reticulocyte % (Auto) (0.5-2.3) % Neut # (Auto) (1.5-6.6) 10^3/uL Lymph # (Auto) (1.5-3.5) 10^3/uL Corson # (Auto) (0.0-1.0) 10^3/uL Eos # (Auto) (0.0-0.7) 10^3/uL Baso # (Auto) (0.0-0.1) 10^3/uL Absolute Nucleated RBC x10^3/uL Nucleated RBC % /100WBC Absolute Retic (0.020-0.110) 10^6/uL Sodium 137 (135-145) mmol/L Potassium 4.4 (3.5-5.0) mmol/L Chloride 104 (101-111) mmol/L Carbon Dioxide 20 L (21-32) mmol/L Anion Gap 13.0 (6-13) BUN 27 H (6-20) mg/dL Creatinine 1.3 H (0.6-1.2) mg/dL Estimated GFR (MDRD) 53 L (>89) Glucose 178 H (70-100) mg/dL Calcium 9.1 (8.5-10.3) mg/dL Iron (45-182) ug/dL TIBC (250-450) ug/dL % Saturation (20-50) % Transferrin (180-329) mg/dL Ferritin 226.6 (23.9-336.2) ng/mL Lactate Dehydrogenase 157 (91-225) IU/L Vitamin B12 403 (180-914) pg/mL 03/25/21 03/25/21 03/25/21 Range/Units 14:07 13:48 13:48 WBC 9.2 (4.8-10.8) x10^3/uL RBC 3.28 L 3.25 L (4.70-6.10) 10^6/uL Hgb 10.9 L (14.0-18.0) g/dL Hct 32.2 L (42.0-52.0) % MCV 99.1 H (80.0-94.0) fL MCH 33.5 H (27.0-31.0) pg MCHC 33.9 (32.0-36.0) g/dL RDW 12.4 (12.0-15.0) % Plt Count 218 (130-450) 10^3/uL MPV 8.5 (7.4-11.4) fL Reticulocyte % (Auto) 1.57 (0.5-2.3) % Neut # (Auto) 8.4 H (1.5-6.6) 10^3/uL Lymph # (Auto) 0.5 L (1.5-3.5) 10^3/uL Corson # (Auto) 0.2 (0.0-1.0) 10^3/uL Eos # (Auto) 0.0 (0.0-0.7) 10^3/uL Baso # (Auto) 0.0 (0.0-0.1) 10^3/uL Absolute Nucleated RBC 0.00 x10^3/uL Nucleated RBC % 0.0 /100WBC Absolute Retic 0.052 (0.020-0.110) 10^6/uL Sodium (135-145) mmol/L Potassium (3.5-5.0) mmol/L Chloride (101-111) mmol/L Carbon Dioxide (21-32) mmol/L Anion Gap (6-13) BUN (6-20) mg/dL Creatinine (0.6-1.2) mg/dL Estimated GFR (MDRD) (>89) Glucose (70-100) mg/dL Calcium (8.5-10.3) mg/dL Iron 41 L (45-182) ug/dL TIBC 336 (250-450) ug/dL % Saturation 12 L (20-50) % Transferrin 240 (180-329) mg/dL Ferritin (23.9-336.2) ng/mL Lactate Dehydrogenase (91-225) IU/L Vitamin B12 (180-914) pg/mL - Imaging Results Radiology Imaging: positive: EMP read indepedently Imaging Results Comments: No apparent hardware loosening, good anatomical alignment of right total shoulder arthroplasty - Current Medications Current Medications: Current Medications Generic Name Dose Route Start Last Admin Trade Name Freq PRN Reason Stop Dose Admin Acetaminophen 1,000 mg 03/25/21 12:00 03/26/21 06:10 Acetaminophen 500 Mg Tablet PO 1,000 mg Q6HR THOMAS Administration Alcohol 1 amp 03/25/21 13:30 03/25/21 21:15 Ethyl Alcohol 62% Swab Ampule ESTER 1 amp BID THOMAS Administration Aspirin 81 mg 03/25/21 13:30 03/25/21 21:15 Aspirin Ec 81 Mg Tablet PO 81 mg BID THOMAS Administration Atorvastatin Calcium 10 mg 03/25/21 21:00 03/25/21 21:15 Atorvastatin 10 Mg Tablet PO 10 mg QPM THOMAS Administration Ferrous Sulfate 325 mg 03/25/21 16:00 03/25/21 16:03 Ferrous Sulfate 325 Mg Tablet PO 325 mg DAILYWM THOMAS Administration Morphine Sulfate 2 mg 03/25/21 07:17 03/26/21 00:09 Morphine 2 Mg/Ml Carpuject IVP 2 mg Q2HR PRN Administration PAIN Oxybutynin Chloride 5 mg 03/25/21 13:55 03/25/21 22:22 Oxybutynin 5mg Tablet PO 5 mg BID PRN Administration OVERACTIVE BLADDER Oxycodone HCl 5 mg 03/25/21 07:17 03/26/21 04:03 Oxycodone 5 Mg Tablet PO 5 mg Q6HR PRN Administration PAIN Probenecid 250 mg 03/25/21 21:00 03/25/21 21:14 Probenecid 500 Mg Tablet PO 250 mg BID THOMAS Administration Sodium Chloride 10 ml 03/25/21 09:00 03/26/21 00:10 Sodium Chloride Flush 0.9% 10 Ml Syringe IVP 10 ml 0100,0900,1700 THOMAS Administration - Physical Exam Wound/Incisions: positive: Dressing dry and intact General Appearance: positive: No acute distress Respiratory: positive: No respiratory distress Skin: positive: Color nml, Warm, Dry Neurologic/Psychiatric: positive: Oriented x3, Motor nml, Sensation nml, Mood/affect nml ABX Reporting Has patient been on IV antibiotics over the past 48 hours?: Yes Impression/Plan - Problem List Problem List: Patient is an 80-year-old male postop day 1 right total shoulder arthroplasty patient has a medical history including essential hypertension, gout, iron deficiency anemia. Patient shows no signs or symptoms of infection, his dressing is clean and dry. Patient reports pain in his shoulder that radiates to his back but this is not unexpected after his surgery. The pain will lessen over time and we have a pain management regimen in place in the hospital and at home.Patient has been instructed on the gentle range of motion he is allowed taking care not to externally rotate the operative shoulder. Patient is being comanaged by hospitalist for medical management. Providing Safe completion of PT/OT where patient can indicate he can safely get to commode/bathroom set up to eat and get up to chair patient is medically stable and stable from orthopedic surgery standpoint that he is safe to discharge home.
--- NOTE | 2021-03-26 08:00 | Discharge Plan ---
Discharge Plan Problem Reviewed?: Yes Disposition: Home, Self Care Condition: Good Diet: Regular Activity Restrictions: Activity as Tolerated Shower Restrictions: No Driving Restrictions: Yes (Do not operate a motor vehicle until medically cleared) Assistance Devices: Sling Weight Bearing: As tolerated Plan of Treatment: Pain management, monitor for signs and symptoms of infection, use sling as needed, gentle range of motion as instructed. Additional Instructions or Follow Up instructions: First post operative appointment on March 30, 2021 at 11:45 AM at [facility]. For pain management: Take scheduled Tylenol 650 mg every 5 hours up to 5 times a day regardless of pain. Take 50 mg of tramadol scheduled every 5 hours up to 4 times a day regardless of pain. Take 1 tablet of 5 mg oxycodone every 4-6 hours as needed for breakthrough pain greater than 8 out of 10. Take 81 mg baby aspirin in the morning 81 mg baby aspirin at night every day for 6 weeks for blood clot prevention Can gently and the elbow wrist and hand and actively assist lifting of the operative arm taking care not to. Externally rotate the shoulder., As instructed. Use sling as needed No Smoking: If you smoke, Please STOP! Call for help. Follow-up with: Heath Acuña MD [Primary Care Provider] -
[2021-03-26] MEDS: PROBENECID 500 MG TABLET PO SCH (09:03)
[2021-03-26] MEDS: FERROUS SULFATE 325 MG TABLET PO SCH (09:06)
[2021-03-26] MEDS: ethyl alcohoL 62% SWAB AMPULE NAS SCH (09:06)
[2021-03-26] MEDS: ASPIRIN EC 81 MG TABLET PO SCH (09:06)
[2021-03-26] MEDS: OXYBUTYNIN 5MG TABLET PO PRN (10:16)
[2021-03-26 12:03] VITALS: BP 117/64
== END 2021-03-26 11:35 | disposition home or self-care (01) | DRG 483 ==
LOC: MS2 06:16
PROVIDERS: ADMIT Orthopaedic Surgery; ATTEND Physician Assistant
PROC: 0RRJ0JZ Replacement of Right Shoulder Joint with Synthetic Substitute, Open Approach (ICD-10-PCS; principal; 2021-03-25 07:30)
DX: M19.011 Primary osteoarthritis, right shoulder (principal); D50.9 Iron deficiency anemia, unspecified; E86.0 Dehydration; I10 Essential (primary) hypertension; E78.5 Hyperlipidemia, unspecified; G47.30 Sleep apnea, unspecified; M10.9 Gout, unspecified; N40.1 Benign prostatic hyperplasia with lower urinary tract symptoms; R35.1 Nocturia; E66.3 Overweight; Z68.26 Body mass index [BMI] 26.0-26.9, adult; G89.29 Other chronic pain; M54.9 Dorsalgia, unspecified; Z96.652 Presence of left artificial knee joint; Z72.89 Other problems related to lifestyle; Z79.899 Other long term (current) drug therapy
CPT/HCPCS: 36415; 71045; 73030; 80048; 82607; 82728; 83540; 83615; 84466; 85014; 85018; 85025; 85045; 97110; 97161; 97166; A9270; C1713; J0131; J0690; J7120

== ENCOUNTER → 2021-05-05 | Outpatient (CLI) | payer MEDICARE, OTHER ==
--- NOTE | 2021-05-05 16:35 | XRAY Report ---
PROCEDURE: Shoulder 3 View RT INDICATIONS: TOTAL SHOULDER ARTHROPLASTY TECHNIQUE: 4 views of the shoulder were acquired. COMPARISON: Shoulder x-ray 03/25/2021 FINDINGS: Bones: No fractures or dislocations. No suspicious bony lesions. Visualized ribs appear intact. S table appearance of right shoulder arthroplasty. Hardware is intact without evidence of hardware frac ture or periprosthetic lucency to suggest loosening. Soft tissues: No suspicious soft tissue calcifications. IMPRESSION: Stable appearance of shoulder arthroplasty. Reviewed by: Marija Hinton MD on 05/05/2021 4:34 PM PDT Approved by: Marija Hinton MD on 05/05/2021 4:34 PM PDT Station ID: [id number]
== END ==
LOC: DI.N 08:14
PROVIDERS: ATTEND Orthopaedic Surgery
DX: Z96.611 Presence of right artificial shoulder joint (principal)

== ENCOUNTER 2021-09-22 15:43 | Outpatient (CLI) | payer MEDICARE, OTHER ==
--- NOTE | 2021-09-22 19:57 | Ultrasound Report ---
PROCEDURE: Testicle INDICATIONS: LEFT TESTICULAR MASS TECHNIQUE: Real-time scanning was performed of the scrotum and testicles, with image documentation. Color and p ulse Doppler interrogation was performed of both testicles. COMPARISON: None. FINDINGS: Right: Testicle is normal in size at 4.3 x 2.8 x 3.6 cm, and homogenous in echotexture. Epididymis is normal in overall size and morphology. Small right hydrocele is noted. No varicoceles. Overlying s crotal skin is normal in thickness. Left: Testicle is normal in size at 4.8 x 2.8 x 2.8 cm, and homogeneous in echotexture. Epididymis is normal in overall size and morphology. 1.4 x 0.7 x 1.6 cm left epididymal cyst is seen. Large left hydrocele is seen. No varicoceles. Overlying scrotal skin is normal in thickness. Multiple sub-5 mm echogenic foci within left scrotal wall superior to the left testes are seen. 1 cm left scrotal wall calcification is also noted. Doppler: Color and pulse Doppler demonstrate normal and symmetric arterial flow in both testicles. IMPRESSION: 1. Large left hydrocele and small right hydrocele. 1 cm left scrotal calcification and additional les s than 5 mm echogenic foci scattered in left scrotal wall which may represent additional area of smal l calcifications. Small right hydrocele. 2. Normal-appearing bilateral testes. Left epididymal cyst as above. Reviewed by: Jad Abraham MD on 09/22/2021 7:56 PM PST Approved by: Jad Abraham MD on 09/22/2021 7:56 PM PST Station ID: [id number]
== END 2021-09-22 15:44 | disposition home or self-care (01) ==
LOC: DI 15:43
PROVIDERS: ATTEND Family Medicine
DX: N43.3 Hydrocele, unspecified (principal); N50.3 Cyst of epididymis; R93.89 Abnormal findings on diagnostic imaging of other specified body structures

== ENCOUNTER 2022-01-19 07:37 | Outpatient (CLI) | payer MEDICARE, OTHER ==
[2022-01-19 07:52] LABS: BASOPHILS # (AUTO) 0.1 10^3/uL (0.0-0.1); BASOPHILS % (AUTO) 0.8 %; EOSINOPHILS # (AUTO) 0.3 10^3/uL (0.0-0.7); EOSINOPHILS % (AUTO) 4.2 %; HCT - HEMATOCRIT 42.5 % (42.0-52.0); HGB - HEMOGLOBIN 14.8 g/dL (14.0-18.0); LYMPHOCYTES # (AUTO) 1.7 10^3/uL (1.5-3.5); LYMPHOCYTES % (AUTO) 25.4 %; MEAN CORPUSCULAR HEMOGLOBIN 33.2 pg (27.0-31.0); MEAN CORPUSCULAR HGB CONC 34.8 g/dL (32.0-36.0); MEAN CORPUSCULAR VOLUME 95.3 fL (80.0-94.0); MEAN PLATELET VOLUME 8.2 fL (7.4-11.4); MONOCYTES # (AUTO) 0.6 10^3/uL (0.0-1.0); MONOCYTES % (AUTO) 9.4 %; NEUTROPHILS # (AUTO) 3.9 10^3/uL (1.5-6.6); NEUTROPHILS % (AUTO) 59.9 %; PLT - PLATELET COUNT 274 10^3/uL (130-450); RED BLOOD COUNT 4.46 10^6/uL (4.70-6.10); RED CELL DISTRIBUTION WIDTH 12.7 % (12.0-15.0); WHITE BLOOD COUNT 6.5 x10^3/uL (4.8-10.8)
[2022-01-19 08:13] LABS: ALBUMIN 4.5 g/dL (3.2-5.5); ALBUMIN/GLOBULIN RATIO 1.7 (1.0-2.2); ALKALINE PHOSPHATASE 77 IU/L (42-121); ALT ALANINE AMINOTRANSFERASE 26 IU/L (10-60); AST ASPARTATE AMINOTRANSFERASE 27 IU/L (10-42); BILIRUBIN,TOTAL 0.8 mg/dL (0.2-1.0); BUN - BLOOD UREA NITROGEN 20 mg/dL (6-20); CARBON DIOXIDE - CO2 24 mmol/L (21-32); CHLORIDE 101 mmol/L (101-111); CHOL/HDL RATIO 2.4 (<5.0); CHOLESTEROL 158 mg/dL; CREATININE 0.9 mg/dL (0.6-1.2); GFR - MDRD 81 (>89); GLUCOSE 108 mg/dL (70-100); HDL CHOLESTEROL 67 mg/dL; LDL CHOLESTEROL,CALCULATED 71 mg/dL; LDL/HDL RATIO 1.1 (<3.6); POTASSIUM 4.2 mmol/L (3.5-5.0); SODIUM 134 mmol/L (135-145); TOTAL PROTEIN 7.1 g/dL (6.7-8.2); TRIGLYCERIDES 102 mg/dL; URIC ACID 4.6 mg/dL (2.6-7.2); VLDL CHOLESTEROL 20 mg/dL
[2022-01-19 08:24] LABS: THYROID STIMULATING HORMONE 3.03 uIU/mL (0.34-5.60)
[2022-01-19 13:43] LABS: ESTIMATED AVERAGE GLUCOSE 117 mg/dL (70-100); HEMOGLOBIN A1c% 5.7 % (4.27-6.07)
== END 2022-01-19 07:38 | disposition home or self-care (01) ==
LOC: LAB 07:37
PROVIDERS: ATTEND Family Medicine
DX: M19.90 Unspecified osteoarthritis, unspecified site (principal); N32.81 Overactive bladder; N40.1 Benign prostatic hyperplasia with lower urinary tract symptoms; R73.01 Impaired fasting glucose; M10.9 Gout, unspecified; K21.9 Gastro-esophageal reflux disease without esophagitis
CPT/HCPCS: 36415; 80053; 80061; 83036; 83721; 84443; 84550; 85025

== ENCOUNTER 2022-11-25 15:50 | Outpatient (CLI) | payer MEDICARE, OTHER ==
--- NOTE | 2022-11-26 12:17 | XRAY Report ---
PROCEDURE: Knee 3 View RT INDICATIONS: KNEE PAIN,RIGHT TECHNIQUE: 3 views of the right knee(s) were acquired. COMPARISON: None. FINDINGS: Bones: No fractures or dislocations. Moderate tricompartmental osteoarthritis is seen with joint spa ce narrowing, subchondral sclerosis and marginal osteophyte formation most notably in patellofemoral compartment. Slight lateral subluxation of patella is also seen. No suspicious bony lesions. Soft tissues: Moderate joint effusion is noted. Ill-defined amorphous calcifications are seen within right patellofemoral compartment and medial femoral tibial compartment concerning for loose bodies. IMPRESSION: 1. Moderate tricompartmental osteoarthritis as above. No fracture or dislocation. 2. Moderate joint effusion and suggestion of intra-articular loose bodies. Reviewed by: Jad Abraham MD on 11/26/2022 12:16 PM PST Approved by: Jad Abraham MD on 11/26/2022 12:16 PM PST Station ID: [id number]
== END 2022-11-25 15:51 | disposition home or self-care (01) ==
LOC: DI 15:50
PROVIDERS: ATTEND Physician Assistant
DX: M17.11 Unilateral primary osteoarthritis, right knee (principal); M25.461 Effusion, right knee

== ENCOUNTER 2023-02-17 07:12 | Outpatient (CLI) | payer MEDICARE, OTHER ==
[2023-02-17 07:34] LABS: BASOPHILS # (AUTO) 0.1 10^3/uL (0.0-0.1); BASOPHILS % (AUTO) 1.1 %; EOSINOPHILS # (AUTO) 0.4 10^3/uL (0.0-0.7); EOSINOPHILS % (AUTO) 6.2 %; HCT - HEMATOCRIT 43.7 % (42.0-52.0); HGB - HEMOGLOBIN 14.8 g/dL (14.0-18.0); LYMPHOCYTES % (AUTO) 30.2 %; MEAN CORPUSCULAR HEMOGLOBIN 32.9 pg (27.0-31.0); MEAN CORPUSCULAR HGB CONC 33.9 g/dL (32.0-36.0); MEAN CORPUSCULAR VOLUME 97.1 fL (80.0-94.0); MEAN PLATELET VOLUME 8.6 fL (7.4-11.4); MONOCYTES # (AUTO) 0.6 10^3/uL (0.0-1.0); MONOCYTES % (AUTO) 9.7 %; NEUTROPHILS # (AUTO) 3.4 10^3/uL (1.5-6.6); NEUTROPHILS % (AUTO) 52.6 %; PLT - PLATELET COUNT 282 10^3/uL (130-450); RED CELL DISTRIBUTION WIDTH 12.7 % (12.0-15.0); WHITE BLOOD COUNT 6.5 x10^3/uL (4.8-10.8)
[2023-02-17 07:42] LABS: ALBUMIN 4.5 g/dL (3.2-5.5); ALBUMIN/GLOBULIN RATIO 1.6 (1.0-2.2); ALKALINE PHOSPHATASE 73 IU/L (42-121); ALT ALANINE AMINOTRANSFERASE 27 IU/L (10-60); AST ASPARTATE AMINOTRANSFERASE 28 IU/L (10-42); BILIRUBIN,TOTAL 0.7 mg/dL (0.2-1.0); BUN - BLOOD UREA NITROGEN 24 mg/dL (6-20); CALCIUM 9.4 mg/dL (8.5-10.3); CARBON DIOXIDE - CO2 25 mmol/L (21-32); CHLORIDE 107 mmol/L (101-111); CHOL/HDL RATIO 2.5 (<5.0); CHOLESTEROL 165 mg/dL; CREATININE 0.9 mg/dL (0.6-1.2); GFR - MDRD 81 (>89); GLUCOSE 114 mg/dL (70-100); HDL CHOLESTEROL 66 mg/dL; LDL CHOLESTEROL,CALCULATED 75 mg/dL; LDL/HDL RATIO 1.1 (<3.6); POTASSIUM 4.1 mmol/L (3.5-5.0); SODIUM 143 mmol/L (135-145); TOTAL PROTEIN 7.3 g/dL (6.7-8.2); TRIGLYCERIDES 122 mg/dL; URIC ACID 5.1 mg/dL (2.6-7.2); VLDL CHOLESTEROL 24 mg/dL
[2023-02-17 10:38] LABS: ESTIMATED AVERAGE GLUCOSE 114 mg/dL (70-100); HEMOGLOBIN A1c% 5.6 % (4.27-6.07)
== END 2023-02-17 07:13 | disposition home or self-care (01) ==
LOC: LAB 07:12
PROVIDERS: ATTEND Family Medicine
DX: E78.5 Hyperlipidemia, unspecified (principal); R73.01 Impaired fasting glucose; M10.9 Gout, unspecified; I10 Essential (primary) hypertension
CPT/HCPCS: 36415; 80053; 80061; 83036; 83721; 84550; 85025

== ENCOUNTER 2024-02-16 07:08 | Outpatient (CLI) | payer MEDICARE, OTHER ==
[2024-02-16 07:48] LABS: BASOPHILS # (AUTO) 0.1 10^3/uL (0.0-0.1); EOSINOPHILS # (AUTO) 0.2 10^3/uL (0.0-0.7); EOSINOPHILS % (AUTO) 3.9 %; HCT - HEMATOCRIT 42.8 % (42.0-52.0); HGB - HEMOGLOBIN 14.3 g/dL (14.0-18.0); LYMPHOCYTES % (AUTO) 34.2 %; MEAN CORPUSCULAR HEMOGLOBIN 32.4 pg (27.0-31.0); MEAN CORPUSCULAR HGB CONC 33.4 g/dL (32.0-36.0); MEAN CORPUSCULAR VOLUME 96.8 fL (80.0-94.0); MEAN PLATELET VOLUME 8.4 fL (7.4-11.4); MONOCYTES # (AUTO) 0.6 10^3/uL (0.0-1.0); NEUTROPHILS % (AUTO) 50.6 %; PLT - PLATELET COUNT 281 10^3/uL (130-450); RED BLOOD COUNT 4.42 10^6/uL (4.70-6.10); RED CELL DISTRIBUTION WIDTH 12.5 % (12.0-15.0); WHITE BLOOD COUNT 5.9 x10^3/uL (4.8-10.8)
[2024-02-16 07:53] LABS: ALBUMIN 4.5 g/dL (3.2-5.5); ALBUMIN/GLOBULIN RATIO 1.9 (1.0-2.2); ALKALINE PHOSPHATASE 71 IU/L (42-121); ALT ALANINE AMINOTRANSFERASE 15 IU/L (10-60); AST ASPARTATE AMINOTRANSFERASE 16 IU/L (10-42); BILIRUBIN,TOTAL 0.5 mg/dL (0.2-1.0); BUN - BLOOD UREA NITROGEN 24 mg/dL (6-20); CALCIUM 9.6 mg/dL (8.5-10.3); CARBON DIOXIDE - CO2 23 mmol/L (21-32); CHLORIDE 108 mmol/L (101-111); CHOLESTEROL 167 mg/dL; CREATININE 1.1 mg/dL (0.6-1.3); GFR - MDRD 64 (>89); GLUCOSE 106 mg/dL (74-104); HDL CHOLESTEROL 55 mg/dL; LDL CHOLESTEROL,CALCULATED 76 mg/dL; LDL/HDL RATIO 1.4 (<3.6); POTASSIUM 4.3 mmol/L (3.5-4.5); SODIUM 139 mmol/L (135-145); TOTAL PROTEIN 6.9 g/dL (6.4-8.9); TRIGLYCERIDES 181 mg/dL (48-352); URIC ACID 5.4 mg/dL (4.4-7.6); VLDL CHOLESTEROL 36 mg/dL
[2024-02-16 08:00] LABS: THYROID STIMULATING HORMONE 3.67 uIU/mL (0.34-5.60)
[2024-02-16 09:09] LABS: ESTIMATED AVERAGE GLUCOSE 114 mg/dL (70-100); HEMOGLOBIN A1c% 5.6 % (4.27-6.07)
== END 2024-02-16 07:09 | disposition home or self-care (01) ==
LOC: LAB 07:08
PROVIDERS: ATTEND Family Medicine
DX: I10 Essential (primary) hypertension (principal); H61.21 Impacted cerumen, right ear; N32.81 Overactive bladder; R73.01 Impaired fasting glucose; M10.9 Gout, unspecified; K21.9 Gastro-esophageal reflux disease without esophagitis
CPT/HCPCS: 36415; 80053; 80061; 83036; 83721; 84443; 84550; 85025